=== PATIENT | male | born 1960 | race Caucasian/White ===

== ENCOUNTER → 2016-04-15 | Outpatient (CLI) | payer OTHER ==
[~2016-04-15] MED LIST: CEPACOL SORE T1 EAC1 PO; DUONEB DPS3 ML IH; LEVAQUIN DPS750 MG PO; LISINOPRIL10 MG PO; MEVACOR20 MG PO; PRISTIQ50 MG PO; TAMIFLU75 MG PO; TENORMIN-DPS25 MG PO; TYLENOL DPS325 MG PO; ULTRAM DPS50 MG PO; XANAX DPS0.5 MG PO; ZANTAC DPS150 MG PO
== END | disposition home or self-care (01) ==
LOC: PTH.S 15:00 → RAD.S 15:11
DX: R10.13 Epigastric pain (principal); R07.9 Chest pain, unspecified; R13.10 Dysphagia, unspecified

== ENCOUNTER → 2016-05-27 | Outpatient (CLI) | payer OTHER | END | disposition home or self-care (01) | LOC: RAD.S 05-26 15:00 | DX: J18.9 Pneumonia, unspecified organism (principal) ==

== ENCOUNTER 2016-06-22 21:36 | Emergency (ER) | payer SELFPAY ==
[~2016-06-22 21:36] MED LIST changes: -LISINOPRIL10 MG PO; -MEVACOR20 MG PO; -TENORMIN-DPS25 MG PO; -ZANTAC DPS150 MG PO
--- NOTE | 2016-06-25 13:01 | ER ---
ADMIT: 06/22/2016 RM/LOC: ER [facility] MR#: [id number] [id number] [place], [place] [id number] PHUONG BASS [address] [address] Emergency Room Report SEX: M AGE: 55 : 1960 DATE: 06/22/2016 HISTORY OF PRESENT ILLNESS: A 55-year-old, who was walking around his neighborhood and the dog, who was on a leash approached him and bit him in the left lower leg. He said it was a small dog and he has seen him before, unprovoked. He said it was small dog that bit him through the anterior leg. REVIEW OF SYSTEMS: Otherwise negative. PAST MEDICAL HISTORY: Depression, GERD, high cholesterol, knee, back, wrist hernia. MEDICATIONS: He takes: 1. Xanax. 2. Pristiq. 3. Ranitidine. 4. Cholesterol medication. 5. Blood pressure medication. He was given Tdap today. The dog had immunization, so he is not going to be receiving the rabies shot. He was given Augmentin antibiotic started tonight and follow up the rest of the time twice a day. CLINICAL IMPRESSION: Puncture wound, left leg dog bite. RICHARD Salas / Saeid Garcia MD / miguel JOB #: [id number] CC: Saeid Garcia MD, Attending Physician Chirag Yates MD, Family Physician
[2016-11-11] MEDS ORDERED: TENORMIN-DPS25 MG PO (19:06)
[2016-11-11] MEDS ORDERED: ZANTAC DPS150 MG PO (19:06)
[2016-11-11] MEDS ORDERED: LISINOPRIL10 MG PO (19:07)
[2016-11-11] MEDS ORDERED: MEVACOR20 MG PO (19:08)
== END 2016-06-22 23:00 | disposition home or self-care (01) ==
LOC: ER 21:36
DX: S81.832A Puncture wound without foreign body, left lower leg, initial encounter (principal); F32.9 Major depressive disorder, single episode, unspecified; K21.9 Gastro-esophageal reflux disease without esophagitis; E78.00 Pure hypercholesterolemia, unspecified; Z23 Encounter for immunization; Z79.899 Other long term (current) drug therapy; W54.0XXA Bitten by dog, initial encounter